=== PATIENT | female | born 1985 | race Two or more races ===

== ENCOUNTER 2019-08-29 23:56 | Emergency (ER) | payer OTHER ==
[~2019-08-29] VITALS: Ht 165.1 cm; Wt 47.6 kg
[2019-08-29 23:59] VITALS: BP 112/61
--- NOTE | 2019-08-30 00:10 | NUR ---
[facility] PT HAS NO COMPLAINTS AT THIS TIME. PT DENIES SI/HI.
--- NOTE | 2019-08-30 01:36 | NUR ---
Patient discharged to home in stable condition. Written and verbal after care instructions given. Patient verbalizes understanding of instruction.PT ambulatory with a steady gait
== END 2019-08-30 01:37 | disposition home or self-care (01) ==
LOC: ER 23:58
DX: Z13.31 Encounter for screening for depression (principal); F20.9 Schizophrenia, unspecified; F31.9 Bipolar disorder, unspecified; Z59.0 Homelessness

== ENCOUNTER 2019-08-30 03:50 | Emergency (ER) | payer MEDICAID ==
[~2019-08-30] VITALS: Ht 165.1 cm; Wt 47.6 kg
--- NOTE | 2019-08-30 04:20 | NUR ---
SAFETY AND SUICIDE PRECAUTIONS IMPLEMENTED. 1:1 SITTER AT BEDSIDE AND IS PLACED ON CONSTANT OBSERVATION
--- NOTE | 2019-08-30 04:23 | NUR ---
URINE COLLECTED AND SENT TO LAB
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
[2019-08-30 04:35] LABS: APPEARANCE,URINE Slightly Cloudy (CLEAR); BILIRUBIN,URINE Negative (NEGATIVE); BLOOD, URINE Moderate Ery/uL (NEGATIVE); COLOR,URINE Yellow (YELLOW); KETONES,URINE Negative (NEGATIVE); LEUKOCYTE ESTERASE ,URINE Trace (NEGATIVE); NITRITE, URINE Negative (NEGATIVE); PROTEIN,URINE Negative (NEGATIVE); UGLUCOSE Negative (NEGATIVE); UROBILINOGEN,URINE 0.2 EU/dL (0.2)
[2019-08-30 04:42] LABS: BASOPHILS # (AUTO) 0.1 /CMM (0.0-0.2); BASOPHILS % (AUTO) 0.5 % (0.0-2.0); EOSINOPHILS % (AUTO) 1.2 % (0.0-6.0); HEMATOCRIT 37 % (33-45); HEMOGLOBIN 12.3 g/dL (11.5-14.8); LYMPHOCYTES # (AUTO) 1.7 /CMM (0.8-4.8); LYMPHOCYTES % (AUTO) 10.4 % (20.0-44.0); MEAN CORPUSCULAR HGB CONC 34 g/dl (31.0-36.0); MEAN CORPUSCULAR VOLUME 95 fL (82-100); MONOCYTES # (AUTO) 1.6 /CMM (0.1-1.30); MONOCYTES % (AUTO) 9.5 % (2.0-12.0); NEUTROPHILS # (AUTO) 12.8 /CMM (1.8-8.9); NEUTROPHILS % (AUTO) 78.4 % (43.0-81.0); PLATELET COUNT (AUTO) 298 /CMM (150-450); RED BLOOD CELL COUNT(AUTO) 3.87 MIL/uL (4.0-5.2); WHITE BLOOD COUNT (AUTO) 16.3 K/uL (4.3-11.0)
[2019-08-30 04:51] LABS: BACTERIA,URINE Many /HPF (None Seen); RBC,URINE 0-2 /HPF (0-2); SQUAMOUS EPITHELIAL CELL,UR Moderate /HPF (None Seen)
[2019-08-30 04:53] LABS: CALCIUM, SERUM 8.8 mg/dL (8.5-10.1); CARBON DIOXIDE 25 mmol/L (21-32); CHLORIDE 104 mmol/L (98-107); CREATININE 0.7 mg/dL (0.6-1.3); GLUCOSE 104 mg/dL (74-106); POTASSIUM 3.2 mmol/L (3.5-5.1); SODIUM SERUM 139 mmol/L (136-145); UREA NITROGEN, BLOOD 7 mg/dL (7-18)
[2019-08-30 04:58] LABS: ALANINE AMINOTRANSFERASE 14 U/L (12-78); ALBUMIN 3.8 g/dL (3.4-5.0); ALCOHOL, BLOOD < 3 mg/dL (0-0); ALKALINE PHOSPHATASE 73 U/L (46-116); ASPARTATE AMINOTRANSFERASE 15 U/L (15-37); BILIRUBIN,DIRECT 0.1 mg/dL (0.0-0.2); BILIRUBIN,TOTAL 0.8 mg/dL (0.2-1.0); TOTAL PROTEIN, SERUM 7.1 g/dL (6.4-8.2)
[2019-08-30 04:59] LABS: ACETAMINOPHEN 0 ug/ml (10-30); SALICYLATE 0.2 mg/dL (2.8-20.0)
--- NOTE | 2019-08-30 05:22 | NUR ---
Patient is resting comfortably in bed with eyes closed. Easily aroused. VSS
--- NOTE | 2019-08-30 05:30 | NUR ---
CALLED AVILA MARTINEZ FOR EVALUATION
--- NOTE | 2019-08-30 06:15 | NUR ---
Patient is resting comfortably in bed with eyes closed. Easily aroused. VSS
--- NOTE | 2019-08-30 06:15 | NUR ---
PT ON CONSTANT OBSERVATION W/ SITTER AT BEDSIDE. SAFETY AND SUICIDE PRECAUTIONS IMPLEMENTED
--- NOTE | 2019-08-30 06:20 | NUR ---
AVILA MARTINEZ AT BEDSIDE FOR EVALUATION
--- NOTE | 2019-08-30 06:39 | NUR ---
PER AVILA MARTINEZ, PT WILLING TO GO VOLUNTARY TO PSYCH FACILITY. CALLED [facility]. NO FEMALE BEDS AVAILABLE AT THIS TIME. CLINICAL INFORMATION FAXED TO [facility]
--- NOTE | 2019-08-30 07:10 | NUR ---
ASSUME PT CARE, RESTING IN BED. STABLE VITALS. 1:1 SITTER AT BEDSIDE.
--- NOTE | 2019-08-30 08:52 | NUR ---
CALLED [facility] TO FOLLOWUP ON STATUS OF PATIENT. AT THIS MOMENT PT HAS NOT BEEN ACCEPTED YET BUT WILL FOLLOWUP IN 15 MINUTES TO GIVE US UPDATE.
--- NOTE | 2019-08-30 08:57 | NUR ---
CALLED JENISE FOR TRANSPORT TO [facility]. AMBULANCE PLACED ON WILL CALL AND ONCE WE HAVE INFORMATION OF PT BEING ACCEPTED, WE WILL ACTIVATE AMBULANCE TO [facility] PT.
--- NOTE | 2019-08-30 09:13 | NUR ---
SPOKE TO RACHAEL OF [facility] [phone], REQUESTED TO HOLD TRANSPO OF THE PATIENT GOING TO [facility]. CLINICALS WILL BE REVIEWED FOR POSSIBLE ADMISSION TO [facility]. AWAITING CALL BACK IN 30MIN.
--- NOTE | 2019-08-30 09:56 | NUR ---
CALLED SO JAYANT ELIZABETH FOR FOLLOWUP ON STATUS OF PT TRANSFER. BUDDY SAID THAT CLINICALS HAVE BEEN FAXED TO [facility] AND TO [facility] BUT NO STATUS ON EITHER OR. WILL CALL BACK WITH INFO AND FOLLOW UP IN 15 MINUTES.
--- NOTE | 2019-08-30 11:00 | NUR ---
FAXED CLINICALS TO [facility].
--- NOTE | 2019-08-30 11:03 | NUR ---
CALLED AND SPOKE WITH RACHAEL AT [facility]. STATED NO STATUS OF ACCEPTANCE YET. WILL CALL BACK ONCE THEY HEAR ANYTHING BACK FROM NURSING CLINICAL BIOCHEMICAL GENETICIST.
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
[2019-08-30 11:35] VITALS: BP 132/65
--- NOTE | 2019-08-30 12:23 | NUR ---
RECIEVED A CALL FROM [facility]. PT IS ACCEPTED AT [facility] AND ACCEPTING DR IS DR. PINK AND DR. VERNON. NUMBER FOR REPORT IS [phone]. CIELO IS THE NURSING GARAGEMAN.
--- NOTE | 2019-08-30 12:30 | NUR ---
CALLED [facility] TO ACTIVATE WILL CALL TRANSFER TO [facility]. ETA 30 MINUTES.
--- NOTE | 2019-08-30 12:39 | NUR ---
REPORT GIVEN TO NURSING THEODORA LANG. PT AWAITING TRANSFER.
--- NOTE | 2019-08-30 13:07 | NUR ---
TRANSFERED TO [facility] IN STABLE CONDITION.
== END 2019-08-30 13:19 ==
LOC: ER 03:51
DX: R45.851 Suicidal ideations (principal); F20.9 Schizophrenia, unspecified; F31.9 Bipolar disorder, unspecified; Z59.0 Homelessness
CPT/HCPCS: 36415; 80048; 80076; 80305; 80307; 80329; 81001; 84703; 85025; 87086; 99285; G0480; 81000-TC

== ENCOUNTER 2021-02-26 11:51 | Emergency (ER) | payer MEDICAID, OTHER ==
[~2021-02-26] VITALS: Ht 165.1 cm; Wt 45.4 kg
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
[2021-02-26] MEDS ORDERED: ACETAMINOPHEN ES 500 MG TABLET PO ONE (12:30)
[2021-02-26] MEDS ORDERED: ACETAMINOPHEN ES 500 MG TABLET ONE (12:48)
--- NOTE | 2021-02-26 13:18 | NUR ---
Patient given written and verbal discharge instructions. Patient verbalizes understanding of instructions. Patient is ambulatory with steady gait. Refuses offer of half-way placement. Patient given list of available shelters in surrounding area.
[2021-02-26 13:38] VITALS: BP 115/58
== END 2021-02-26 13:19 | disposition home or self-care (01) ==
LOC: ER 12:02
DX: Z00.8 Encounter for other general examination (principal); R52 Pain, unspecified; F20.9 Schizophrenia, unspecified; F31.9 Bipolar disorder, unspecified; Z59.0 Homelessness

== ENCOUNTER 2022-02-09 12:43 | Emergency (ER) | payer OTHER ==
[~2022-02-09] VITALS: Ht 162.6 cm; Wt 47.6 kg
--- NOTE | 2022-02-09 12:45 | NUR ---
TO ER BED 13, BIB RA 99 C/O SOB AND REQUESTING PLACEMENT,HOMELESS FOR "A LITTLE WHILE", AAOX3, BREATHING EVEN AND NON LABORED, SATTING AT 99% IN ROOM AIR, CONNECTED TO MONITOR, AWAITING MD VERNON
[2022-02-09] MEDS ORDERED: LORAZEPAM 1 MG TABLET ONE (12:59)
[2022-02-09] MEDS ORDERED: LORAZEPAM 1 MG TABLET PO ONE (13:00)
--- NOTE | 2022-02-09 13:40 | NUR ---
SS consult: SS Consult requested for homelessness. The pt. is a 36-year-old female patient who came in to the ED with complaints of SOB per EMR. Upon SS consult, the pt. is Alert & Oriented x 4 and makes poor eye contact due to drowsiness. The pt. appears disheveled with depressed mood & affect. Pt. denies SI/HI and denies hallucinations. SW explored pt.s living situation. Patient states She is currently experiencing homelessness and couldnt estimate how long she has been homeless. SW explored pt.s mental health Hx. and pt. denies any mental illness or taking medication. SW explored pt.s drug & ETOH use. Pt. denies any drug use and alcohol use. Pt. is ambulatory and independent with all her ADLs per EMR. SW explored pt.s support system. Pt. states he has no support system. Pt. reports she receives General Relief and food stamps. Plan: [facility] provided pt. with TAP card and bus directions to [facility] [[address] [place], [place]] as She stated he is interested in housing. CONSTANTINO also provided pt. with homeless resources to long term, food herman, showers etc. and pt. accepted resources. Pt. refused to sign homeless waiver and it was placed in the pt.s chart. Year-round shelters: [place] [facility] [address] [place] [address] ; [facility] [address] [place] [address]; [facility] Glcbksq[address] [facility]. [facility] [address] Hygiene: [facility]: [address] ; [facility] [address] [facility] ; [facility] [address] Asmita Elizabeth . Food Resources: [facility] at [facility]- [address]. [place]; Meet Each Need with Dignity ([facility]) [address] [facility] [place]; [facility] [address] [facility]; [facility] [address]. Mental Health resources provided: [facility] [address] [place], [place] [address] ; [facility] [address] [facility] [address], [place], [place] [id number] ; [facility] [address] [place], [place] [phone] ; [facility] [address] [place], [place] [address] Healthcare Clinics: [facility] [address], [address] [place] ; [facility] [address] [place] [address]; [facility] [address] [facility] [place] [address] [phone] Counseling--Outpatient [facility] [address], [address] [place], [place] [address] (Specializes in in-depth psychotherapy for emotional distress: anxiety, depression, interpersonal conflicts, life transitions, childhood abuse) [facility] [address] [place] [address] (Assist with solving problem marital difficulties, separation & divorce, aging parents, & grief, chronic & terminal illness) [facility] [address] [place] [address] (Deal with loss & grief, anxiety, marital difficulties) Homebound/Mental Health Services [address] [facility], [address] [place], [place] [id number] (Provide in-home mental services to people who are incapable of leaving their homes) [facility] of the Elderly Senior Service/Resource Center [address] [facility] [place] [address] [facility] [address] [facility]. [place], [place] [address] PSYCHIATRIC OUTPATIENT SERVICES [facility] Partial Hospitalization and Intensive Outpatient Program (Managed Care and Ko[place] Only)[address] [facility] [phone] [facility] Partial Hospitalization and Outpatient [address] [place], [place] [phone] ASMITA BARDALES [facility] [id number] [facility]. [address] [place], [place] [phone] [facility] Partial Hospitalization and Outpatient Capqayc[address] Emelifarhana Rust Asmita Bardales, [phone] Substance Abuse resources provided included: [facility] Substance Abuse Self-Helpline ([facility]) ; [facility] [address] [facility]. [place] [address] ; [facility] [address] [facility] [facility] [address] ; [facility] [address] [facility] [address] ; [facility] [address] [facility] [address] ; [facility] [address] [facility] [address] ; [facility] [address] [facility] [phone] ; [facility] Substance Abuse Helpline([facility])-[facility] ; [facility] ; [facility] [place]; [facility] [place]; [facility] Asmita Bardales; [facility]; [facility] [place]; [facility] Yeim Bryant; Alcoholics Anonymous -[facility]; Leonard ; Marijuana Anonymous -[facility]; Narcotics Anonymous www.na.org;
--- NOTE | 2022-02-09 13:45 | NUR ---
SEEN BY SPLICER APPRENTICE ROSEMARIE Polanco
--- NOTE | 2022-02-09 14:02 | NUR ---
Patient discharged to home in stable condition. Written and verbal after care instructions given. Patient verbalizes understanding of instruction.
[2022-02-09 14:03] VITALS: BP 107/66
== END 2022-02-09 14:04 | disposition home or self-care (01) ==
LOC: ER 12:45
DX: F41.9 Anxiety disorder, unspecified (principal); Z59.00 Homelessness unspecified; F20.9 Schizophrenia, unspecified; F31.9 Bipolar disorder, unspecified